=== PATIENT | female | born 1960 | race Caucasian/White ===

== ENCOUNTER 2016-10-27 13:45 | Emergency (ER) | payer OTHER ==
[~2016-10-27] VITALS: Ht 170.2 cm; Wt 86.2 kg
[~2016-10-27 13:45] MED LIST: AMLODIPINE BESY10 M1 PO; AUGMENTIN 500M500 MG PO; AUGMENTIN 875 M1 TAB PO; BIAXIN500 MG PO; CARISOPRODOL350 M1 PO; CARVEDILOL6.25 M1 PO; CLONAZEPAM0.5 M2 PO; DYMISTA NASAL S23 GM NASB; GEMFIBROZIL600 M1 PO; GUAIFENESIN-COD10 ML PO; IPRAT-ALBUT 0.5-3 ML PO; LISINOPRIL40 M1 PO; MEDROL4 M2 PO; OXCARBAZEPINE300 M1 PO; PREDNISONE 20MG20 MG PO; PREDNISONE20 M1 PO; SYMBICORT 16010.2 GM INH; TESSALON PERLE100 M1 PO; TESSALON PERLE100 MG PO; VENTOLIN HFA18 GM INH; VIBRAMYCIN100 MG PO; ZITHROMAX Z-PA250 M1 PO; ZITHROMAX500 M2 PO
--- NOTE | 2016-10-27 15:48 | ED GENERAL ADULT ---
History of Present Illness General Chief Complaint: Lower Extremity Problems Stated Complaint: R LEG PAIN AND SWELLING Source: patient Exam Limitations: no limitations Vital Signs & Intake/Output Vital Signs & Intake/Output Vital Signs Date Time Temp Pulse Resp B/P B/P Pulse O2 O2 Flow FiO2 Mean Ox Delivery Rate 10/27 1747 97.5 59 16 169/81 97 Room Air 10/27 1348 97.9 64 18 203/111 94 Room Air Allergies Coded Allergies: NO KNOWN ALLERGIES (05/25/15) Reconcile Medications Albuterol Sulfate (Ventolin Hfa) 90 MCG HFA.AER.AD 2 PUF INH Q4-6 PRN PRN BREATHING PROBLEMS (Reported) Albuterol Sulfate 2.5 MG/3 ML (0.083 %) VIAL.NEB 1 Vial INH/MICHAEL PRN ASTHMA/ ALLERGIES (Reported) Amlodipine Besylate 10 MG TABLET 1 TAB PO DAILY BP (Reported) Aspirin (Ecotrin*) (Unknown Strength) TABLET.DR (Unknown Dose) PO DAILY PAIN (Reported) Azelastine/Fluticasone (Dymista Nasal [place]) 137 MCG-50 MCG/SPRAY SPRAY.PUMP 1 SPRAY NASB BID UNKNOWN (Reported) Baclofen 10 MG TABLET 1 TAB PO BID MUSCLE RELAXER (Reported) Budesonide (Pulmicort) (Unknown Strength) AMPUL.NEB (Unknown Dose) UNKNOWN ( Reported) Budesonide/Formoterol Fumarate (Symbicort 160-4.5 Mcg Inhaler) 160 MCG-4.5 MCG/ ACTUATION HFA.AER.AD 2 PUF INH BID BREATHING PROBLEMS (Reported) Carvedilol 6.25 MG TABLET 1 TAB PO BID HEART/BP (Reported) Clonazepam 0.5 MG TABLET 1 TAB PO TID ANXIETY (Reported) Esomeprazole (Nexium) 40 MG CAPSULE.DR 1 CAP PO DAILY GI (Reported) Gemfibrozil 600 MG TABLET 1 TAB PO BID CHOLESTEROL (Reported) Ibuprofen 800 MG TABLET 1 TAB PO TID PRN PAIN Ipratropium/Albuterol Sulfate (Iprat-Albut 0.5-3(2.5) MG/3 Ml) 0.5 MG-3 MG (2.5 MG BASE)/3 ML AMPUL.NEB 1 VIAL PO PRN RESPIRATORY (Reported) Levocetirizine Dihydrochloride 5 MG TABLET 1 TAB PO DAILY ALLERGIES (Reported ) Lidocaine 5 % ADH..PATCH 1 PAT TOP PRN PAIN (Reported) Lisinopril 40 MG TABLET 1.5 TAB PO DAILY BP (Reported) Oxcarbazepine 300 MG TABLET 1 TAB PO 6X DAY MENTAL HEALTH (Reported) Prednisone (Unknown Strength) TABLET (Unknown Dose) PO PRN STEROID (Reported) Tramadol HCl 50 MG TABLET 1 TAB PO PRN PAIN (Reported) Triage Note: PT STATES SHE HAS OSTEOARTHRITIS AND SHE IS HAVING PAIN IN HER RIGHT LEG. PT CALLED HER PCP AND SHE WAS TOLD TO COME TO ED TO R/O PE. PT RIGHT LEG HAS SWELLING AND "MY VEINS ARE VERY LARGE. Triage Nurses Notes Reviewed? yes Onset: Abrupt Duration: day(s): Timing: recent history HPI: 10/27/16 5:35 PM 56-year-old female presents to the emergency department with polyarthritis. She also has severe pain to the right knee. The onset of the symptoms have been abrupt, the duration has been for days, the severity is significant; as her symptoms required her to come to the emergency department for care she denies any trauma. Past History Travel History Traveled to [place] past 21 day No Medical History Any Pertinent Medical History? see below for history Neurological: EPILEPSY EENT: NONE Cardiovascular: hypertension Respiratory: asthma Gastrointestinal: NONE Hepatic: NONE Renal: NONE Musculoskeletal: NONE Psychiatric: NONE Endocrine: NONE Blood Disorders: NONE Cancer(s): NONE WOODWORKING SHOP HAND/Reproductive: NONE Surgical History Surgical History: non-contributory Psychosocial History What is your primary language Croatian Tobacco Use: Current Daily Use Daily Tobacco Use Amount/Type: => 5 Cigarettes daily ETOH Use: occasional use Illicit Drug Use: denies illicit drug use Family History Hx Contributory? No Review of Systems Review of Systems Constitutional: Denies: fever. EENTM: Denies: visual changes. Respiratory: Denies: short of breath. Cardiovascular: Denies: chest pain. GI: Denies: abdominal pain. Genitourinary: Reports: no symptoms. Musculoskeletal: Reports: joint pain, joint swelling, muscle stiffness, neck pain. Skin: Denies: rash. Neurological/Psychological: Reports: no symptoms. Hematologic/Endocrine: Reports: no symptoms. Immunologic/Allergic: Reports: no symptoms. Physical Exam Physical Exam General Appearance: alert, awake, anxious, mild distress Head: atraumatic, normal appearance Eyes: Bilateral: normal appearance, PERRL, EOMI. Ears, Nose, Throat: normal pharynx, normal ENT inspection Neck: normal inspection, supple Respiratory: normal breath sounds, chest non-tender, no respiratory distress Cardiovascular: regular rate/rhythm Peripheral Pulses: 4+ radial (R), 4+ radial (L) Gastrointestinal: soft, non-tender Back: decreased range of motion Extremities: swelling, tenderness Neurologic/Psych: no motor/sensory deficits, awake, alert, oriented x 3 Skin: intact, normal color, warm/dry Comments: The patient has swelling to the distal interphalangeal joint and proximal interphalangeal joint. She has decreased range of motion to multiple joints and has had this for some time. X-ray of the right knee shows severe degenerative changes with a joint effusion. There is no increased warmth or redness to the right knee. 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 Ultrasound the right lower extremity is negative. I think she is having an acute exacerbation of chronic osteoarthritis Core Measures ACS in differential dx? No CVA/TIA Diagnosis: No Severe Sepsis Present: No Septic Shock Present: No Progress Differential Diagnoses I considered the following diagnoses in my evaluation of the patient: [Gout, osteoarthritis, DVT] Plan of Care: Orders Procedure Date/time Status US-UNILATERAL VENOUS DOPPLER 10/27 1510 Active Initial ED EKG: none Departure Departure Disposition: HOME OR SELF CARE Condition: Stable Clinical Impression Primary Impression: Arthritis Referrals: ZIA MENDOZA MD (PCP/Family) Departure Forms: Customer Survey General Discharge Information Prescriptions: Current Visit Scripts Ibuprofen 1 TAB PO TID PRN PAIN #15 TAB Critical Care Note Critical Care Note Critical Care Time: non-applicable
--- NOTE | 2016-10-27 16:04 | ULTRASOUND REPORT ---
EXAMINATION: US TRIPLEX LOWER EXTREMITY, RIGHT CLINICAL INFORMATION: Right lower extremity pain and swelling COMPARISON: None TECHNIQUE: Color-flow triplex imaging with spectral analysis and compression Doppler were performed on the lower extremity. FINDINGS: Respiratory variation, normal compression and augmented flow are noted throughout the left lower extremity. The visualized common femoral vein, superficial femoral vein, profunda femoral vein, popliteal vein and midcalf peroneal and posterior tibial venous segments show no evidence of deep venous thrombosis. 2 Richardson's cysts are noted one measuring 1.7 x 0.7 x 1.1 cm and another measuring 2.7 x 1.0 x 2.1 cm. Superficial varicosities are present. IMPRESSION: No evidence of deep venous thrombosis involving the lower extremity. Richardson's cysts are present along with varicose veins.
[2016-10-27] MEDS ORDERED: BACLOFEN10 M1 PO (16:05)
[2016-10-27] MEDS ORDERED: PREDNISONE10 M2 PO (16:06)
[2016-10-27] MEDS ORDERED: LIDOCAINE1 EACH TOP (16:07)
[2016-10-27] MEDS ORDERED: LEVOCETIRIZINE D5 M1 PO (16:07)
[2016-10-27] MEDS ORDERED: PULMICORT0.25 MG/3 (16:07)
[2016-10-27] MEDS ORDERED: TRAMADOL HCL50 M1 PO (16:07)
[2016-10-27] MEDS ORDERED: ALBUTEROL2.5 MG/3 M INH/SOL (16:08)
[2016-10-27] MEDS ORDERED: NEXIUM40 M1 PO (16:08)
[2016-10-27] MEDS ORDERED: ASPIRIN EC81 M1 PO (16:09)
--- NOTE | 2016-10-27 17:23 | RADIOLOGY REPORT ---
EXAMINATION: XR KNEE, LEFT CLINICAL INFORMATION: Knee pain COMPARISON: 04/02/2012 x-ray TECHNIQUE: Four views of the left knee. FINDINGS: There are moderate tricompartmental degenerative changes of the left knee joint with juxta-articular osteophytosis and narrowing of the medial tibiofemoral joint space. A small suprapatellar joint effusion is present. No acute fracture or dislocation of the left knee. IMPRESSION: ABDOULAYE.
--- NOTE | 2016-10-27 17:26 | RADIOLOGY REPORT ---
EXAMINATION: XR KNEE, RIGHT CLINICAL INFORMATION: Pain. COMPARISON: None TECHNIQUE: Four views of the right knee. FINDINGS: Bone mineral density is maintained without evidence of fracture or dislocation. No focal osseous lesions are seen. There is mild medial and patellofemoral joint compartment narrowing without productive or erosive changes. There is a moderate size joint effusion. IMPRESSION: Joint space narrowing without productive or erosive changes. Moderate size joint effusion.
[2016-10-27 17:47] VITALS: BP 169/81
[2016-10-27] MEDS ORDERED: IBUPROFEN800 M1 PO (18:01)
== END 2016-10-27 18:06 ==
LOC: ERH 13:45
DX: M19.90 Unspecified osteoarthritis, unspecified site (principal)
CPT/HCPCS: 73562-LT; 73562-RT; J3360

== ENCOUNTER 2018-01-25 11:39 | Emergency (ER) | payer OTHER ==
[~2018-01-25 11:39] MED LIST changes: +ALBUTEROL2.5 MG/3 M INH/SOL; +ASPIRIN EC81 M1 PO; +BACLOFEN10 M1 PO; +BROMFED DM COU118 M1 PO; +CIPROFLOXACIN250 M1 PO; +CLEOCIN HCL150 M1 PO; +DIOVAN320 M1 PO; +DIOVAN80 M1 PO; +DOXYCYCLINE HY100 M2 PO; +DULOXETINE HCL20 MG; +HYDROCHLOROTHIA25 M1 PO; +IBUPROFEN800 M1 PO; +INDOMETHACIN50 M1 PO; +KEFLEX500 M1 PO; +LEVAQUIN750 M1; +LEVOCETIRIZINE D5 M1 PO; +LIDOCAINE1 EACH TOP; +LYRICA150 M1 PO; +NEXIUM40 M1 PO; +NIFEDIPINE ER60 M1 PO; +PREDNISONE10 M2 PO; +PREDNISONE50 M1 PO; +PULMICORT0.25 MG/3; +TRAMADOL HCL50 M1 PO; +ZOFRAN4 M2 PO
--- NOTE | 2018-01-25 12:15 | ED GENERAL ADULT ---
History of Present Illness General Chief Complaint: General Adult Stated Complaint: EVANS DIZZY 2 DAYS NAUSEA Source: patient Exam Limitations: poor historian Vital Signs & Intake/Output Vital Signs & Intake/Output Vital Signs Date Time Temp Pulse Resp B/P B/P Pulse O2 O2 Flow FiO2 Mean Ox Delivery Rate 01/25 1829 98.7 69 18 142/78 97 Room Air 01/25 1633 100.1 01/25 1558 100.1 79 18 194/72 97 Room Air 01/25 1351 98.9 75 20 160/85 96 Room Air 01/25 1150 98 Room Air 01/25 1144 98.9 73 20 171/84 94 Room Air Allergies Uncoded Allergies: MOLD AND OTHER ENVIRONMENTAL ALLERGIES (Mild, INFECTIONS 02/11/17) Reconcile Medications Albuterol Sulfate (Ventolin Hfa) 90 MCG HFA.AER.AD 2 PUF INH Q4-6 PRN PRN BREATHING PROBLEMS (Reported) Aspirin (Ecotrin*) 81 MG TABLET.DR 1 TAB PO DAILY PAIN (Reported) Azelastine/Fluticasone (Dymista Nasal [place]) 137 MCG-50 MCG/SPRAY SPRAY.PUMP 1 SPRAY NASB BID allergies (Reported) Baclofen 10 MG TABLET 1 TAB PO BID MUSCLE RELAXER (Reported) Brompheniramine/Pseudoephed/Dm (Bromfed Dm Cough Syrup) 2 MG-30 MG-10 MG/5 ML SYRUP 5-10 ML PO Q4-6 PRN PRN cough Budesonide/Formoterol Fumarate (Symbicort 160-4.5 Mcg Inhaler) 160 MCG-4.5 MCG/ ACTUATION HFA.AER.AD 2 PUF INH BID BREATHING PROBLEMS (Reported) Carvedilol 6.25 MG TABLET 1 TAB PO BID HEART/BP (Reported) Cephalexin (Keflex) 500 MG CAPSULE 1 CAP PO TID WOUND Clonazepam 0.5 MG TABLET 1 TAB PO TID ANXIETY/EPILEPSY (Reported) Doxycycline Hyclate 100 MG CAPSULE 1 CAP PO BID bronchitis Esomeprazole (Nexium) 40 MG CAPSULE.DR 1 CAP PO DAILY GI (Reported) Gemfibrozil 600 MG TABLET 1 TAB PO BID CHOLESTEROL (Reported) Ibuprofen 800 MG TABLET 1 TAB PO TID PRN PAIN Ipratropium/Albuterol Sulfate (Iprat-Albut 0.5-3(2.5) MG/3 Ml) 0.5 MG-3 MG (2.5 MG BASE)/3 ML AMPUL.NEB 1 VIAL PO PRN RESPIRATORY (Reported) Levocetirizine Dihydrochloride 5 MG TABLET 1 TAB PO DAILY ALLERGIES (Reported ) Levofloxacin (Levaquin) (Unknown Strength) TABLET (Unknown Dose) UNKNOWN ( Reported) Nifedipine (Nifedipine ER) 60 MG TABLET.ER 2 TAB PO BID BP (Reported) Oxcarbazepine 300 MG TABLET 2 CAP PO QAM EPILEPSY (Reported) Oxcarbazepine 300 MG TABLET 1 TAB PO BID EPILEPSY (Reported) Oxcarbazepine 300 MG TABLET 2 TAB PO QHS EPILEPSY (Reported) Prednisone 50 MG TABLET 1 TAB PO DAILY bronchitis Pregabalin (Lyrica) 150 MG CAPSULE 1 CAP PO BID FIBROMYALGIA (Reported) Valsartan (Diovan) 320 MG TABLET 1 TAB PO DAILY BP (Reported) Triage Note: 57 YEAR OLD FEMALE TO ER VIA AMBULANCE FROM HER HOME WITH COMPLAINTS OF 2 DAYS OF DIZZINESS HEADACHE HAS A HISTORY OF MIGRAINES, COMPLAINS OF FEELING SOB, O2 SAT 97-98 % ON RA. AFEBRILE, NSR ON MONITOR AND LUNGS CLEAR AT THIS TIME. PT COMPLAINS OF FEELING ACHEY AND FEELS SHE NEEDS TO BE TESTED FOR THE FLU AND PNA. PER EMS ON THERE ARRIVAL TO HER HOME PT WALKING AROUND LOOKING FOR HER CAT AND WOULD NOT LEAVE INTILL SHE FOUND IT. PT ABLE TO AMBULATE TO AMBULANCE WITH NO COMPLAINTS. " PT ALSO REQUESTED THAT EMS DOES NOT TELL US THAT EKG/LUNG SOUNDS WERE GOOD. PAIN IN HEAD 10/10 , PT ALERT AND ORIENTED. Triage Nurses Notes Reviewed? yes HPI: Patient presents for evaluation of bilateral frontal headache that began roughly 1 week ago. Patient states the headache is a constant throbbing headache with associated nausea and dizziness. The patient is referring to productive cough with a greenish yellow phlegm over the past 2-3 days. Patient was recently seen by her chief operator hydroformer and presumably diagnosed with a pneumonia and subsequently placed on doxycycline. Patient is complaining of shortness of breath, myalgias, , dyspnea, chest pain or abdominal pain. stool has been formed but light and soft in consistency. she is concerned about pneumonia or influenza. Past History Travel History Traveled to [place] past 21 day No Medical History Any Pertinent Medical History? see below for history Neurological: EPILEPSY meningioma s/p resection EENT: allergies, anosmia Cardiovascular: hypertension, hyperlipidemia Respiratory: asthma Gastrointestinal: GERD Hepatic: NONE Renal: NONE Musculoskeletal: osteoarthritis, FIBROMYALGIA psoriatic arthritis Psychiatric: NONE Endocrine: NONE Blood Disorders: NONE Cancer(s): NONE DISPENSING LEAD/Reproductive: NONE History of MRSA: No History of VRE: No History of CDIFF: No Surgical History Surgical History: cholecystectomy, hip replacement, Left hip replacement(2003) MENINGIOMA TUMOR REMOVED Psychosocial History Who do you live with Daughter Services at Home None What is your primary language Grenadian Tobacco Use: Never used ETOH Use: denies use Illicit Drug Use: denies illicit drug use Family History Family History, If Any: MOTHER FHx: hypertension Hx Contributory? No Review of Systems Review of Systems Constitutional: Reports: see HPI. EENTM: Reports: no symptoms. Respiratory: Reports: see HPI. Cardiovascular: Reports: see HPI. GI: Reports: see HPI. Genitourinary: Reports: no symptoms. Musculoskeletal: Reports: no symptoms. Skin: Reports: no symptoms. Neurological/Psychological: Reports: no symptoms. Hematologic/Endocrine: Reports: no symptoms. Immunologic/Allergic: Reports: no symptoms. All Other Systems: Reviewed and Negative Physical Exam Physical Exam General Appearance: see below Comments: Gen.: Well-nourished, well-developed, no acute respiratory distress. Head: Normocephalic, atraumatic. Eyes: Normal inspection bilaterally Ears: Normal inspection bilaterally Nose: Normal inspection Throat/mouth : Moist mucosa Neck: Supple, full range of motion, no goiter Heart: Regular rate and rhythm, no murmurs rubs or gallops Lungs: Clear to auscultation bilaterally with normal air entry Chest: Nontender Back: Normal range of motion Abdomen: Soft, nontender, nondistended, normal bowel sounds Extremities: Normal range of motion grossly, equal radial pulses, no cyanosis clubbing or edema Neurologic: Cranial nerves grossly intact, speech is clear Skin: warm and dry Psychiatric: Calm, cooperative, no apparent delusions or hallucinations Core Measures ACS in differential dx? No CVA/TIA Diagnosis: No Sepsis Present: No Sepsis Focused Exam Completed? No Progress Differential Diagnoses I considered the following diagnoses in my evaluation of the patient: Occult infection, diverticulitis, pancreatitis, urinary tract infection, pneumonia, viral syndrome, dehydration, electrolyte abnormality, metabolic acidosis Plan of Care: Orders Procedure Date/time Status URINALYSIS 01/25 1252 Complete CBC WITHOUT DIFFERENTIAL 01/25 1252 Complete BASIC METABOLIC PANEL 01/25 1252 Complete EKG 01/25 1252 Active Laboratory Tests 01/25/18 1500: Urinalysis LIGHT H, Urine Color YEL, Urine Clarity HAZY H, Urine pH 6.5, Ur Specific [place] 1.025, Urine Protein TRACE H, Urine Ketones NEG, Urine Nitrite NEG, Urine Bilirubin NEG, Urine Urobilinogen 0.2, Ur Leukocyte Esterase NEG, Ur Microscopic SEDIMENT EXAMINED, Urine RBC 3-5, Urine WBC 10-15 H, Ur Epithelial Cells MOD H, Urine Bacteria FEW H, Urine Mucus MANY H, Urine Hemoglobin TRACE -INTACT, Urine Glucose NEG 01/25/18 1310: Anion Gap 15, Estimated GFR > 60, BUN/Creatinine Ratio 33.3 H, Glucose 120 H, Calcium 9.1, CBC w Diff NO MAN DIFF REQ, RBC 4.41, MCV 79.9 L, MCH 26.9 L, MCHC 33.6, RDW 16.7 H, MPV 7.1 L, Gran % 83.0 H, Lymphocytes % 10.2 L, Monocytes % 6.7, Eosinophils % 0, Basophils % 0.1, Absolute Granulocytes 10.4 H , Absolute Lymphocytes 1.3, Absolute Monocytes 0.8 H, Absolute Eosinophils 0, Absolute Basophils 0 Diagnostic Imaging: Discussed w/RAD: Radiology Read, CT Scan. Radiology Impression: PATIENT: AYSHA SALDANA PRESENT AGE: 57 PATIENT ACCOUNT NO: [id number] : 61 LOCATION: [facility] ORDERING PHYSICIAN: Alexandre Key MD SERVICE DATE: 01/25/18 EXAM TYPE : CAT - CT ABD & PELVIS W IV CONTRAST EXAMINATION: CT ABDOMEN AND PELVIS WITH CONTRAST CLINICAL INFORMATION: Fever, abdominal pain COMPARISON: Ultrasound 07/2016 TECHNIQUE: Multidetector volumetric imaging was performed of the abdomen and pelvis following IV administration of 95 mL of Optiray 320 intravenous contrast. Sagittal and coronal reformatted images were obtained on the technologist's workstation. DLP: 831 mGy-cm FINDINGS: LUNG BASES: The visualized lung bases are unremarkable. LIVER, GALLBLADDER, AND BILIARY TREE: Liver is diffusely low in attenuation. No focal lesion identified. No intrahepatic biliary dilatation. The gallbladder is unremarkable with no evidence of radiopaque gallstones, gallbladder wall thickening, or obvious pericholecystic inflammatory changes. PANCREAS: Unremarkable. SPLEEN: Unremarkable. ADRENAL GLANDS: Unremarkable. KIDNEYS AND URETERS: The kidneys are normal in size, shape , and attenuation. No hydronephrosis, hydroureter, or calculi seen. No perinephric stranding. BLADDER: Unremarkable. GASTROINTESTINAL TRACT: Small to moderate hiatal hernia. There are no dilated loops of small bowel. Colon is unremarkable. Moderate stool volume. ABDOMINAL WALL: No significant hernia is appreciated. LYMPH NODES: Normal. VASCULAR: Mild to moderate calcific atherosclerotic disease involving the abdominal aorta which appears normal in caliber. PELVIC VISCERA: Uterus appears normal in size. There is relative thickening of the endometrium which measures up to 1.8 cm. The ovaries appear symmetrically sized. However, there are hyperdense foci within the right ovary which may be indicative of focal calcifications. There is no free fluid within the pelvis. No abnormal pelvic adenopathy. OSSEOUS STRUCTURES: Multilevel degenerative changes with vacuum disc phenomena present at the L3-L4 and L4-L5 levels in combination with endplate changes. Similar but milder findings are present at L5-S1. IMPRESSION: 1. No CT evidence for diverticulitis or pancreatitis. 2. Hepatic steatosis. 3. Small to moderate hiatal hernia. 4. Apparent thickening of the endometrium, incompletely evaluated on CT. If the patient is postmenopausal differential diagnosis would include endometrial hyperplasia, polyp or possibly underlying malignancy. 5. Small focal hyperdense foci likely representing calcifications within the right ovary. Suggest follow- up pelvic ultrasound further assess uterine and right ovarian findings. DICTATED BY: Mable Lerma MD DATE/TIME DICTATED:01/25/181713 PLUMBING CONTRACTOR:MAGDALENA DATE/TIME TRANSCRIBED:01/25/181713 CONFIDENTIAL, DO NOT COPY WITHOUT APPROPRIATE AUTHORIZATION. <Electronically signed in Other Vendor System> SIGNED BY: Mable Lerma MD 01/25/18 1728, PATIENT: AYSHA SALDANA PRESENT AGE: 57 PATIENT ACCOUNT NO: [id number] : 61 LOCATION: [facility] ORDERING PHYSICIAN: Alexandre Key MD SERVICE DATE: 01/25/181251 EXAM TYPE: CAT - CT HEAD WO IV CONTRAST EXAMINATION: CT HEAD WITHOUT CONTRAST CLINICAL INFORMATION: Bifrontal headaches, trouble concentrating. Presumptive diagnosis of mass, edema, sinusitis, occult trauma. Remote history of left frontal meningioma excision in 2004. COMPARISON: CT scan of the head dated 01/26/2006. Brain MRI scan dated 05/08/2006. TECHNIQUE: Contiguous axial imaging was performed from the skull base to vertex without intravenous administration of contrast. DLP: 615.28 mGy-cm FINDINGS: The patient is status post left frontal craniotomy with large area of gliosis and encephalomalacia seen in the left frontal lobe, consistent with further evolution of postoperative changes status post excision of left frontal meningioma. There is no evidence of acute intracranial hemorrhage or territorial infarction. No abnormal mass effect or midline shift is seen. Remainder of the martinez to white matter differentiation is well preserved. No extra-axial fluid collections are identified. The ventricles are normal in size. The soft tissues are normal. The mastoid air cells and visualized portions of the paranasal sinuses are well aerated. IMPRESSION: 1. No acute intracranial pathology. 2. Further evolution of the encephalomalacia and gliosis is seen in the left frontal lobe status post left frontal craniotomy for hemangioma excision. DICTATED BY: Magy Emery MD DATE/TIME DICTATED:01/25/181325 PLUMBING CONTRACTOR:MAGDALENA DATE/TIME TRANSCRIBED:01/25/181325 CONFIDENTIAL, DO NOT COPY WITHOUT APPROPRIATE AUTHORIZATION. <Electronically signed in Other Vendor System> SIGNED BY: Magy Emery MD 01/25/18 7941 CXR Impression: no acute abnormality (OF CARDIOPULMONARY) Initial ED EKG: none Comments: 01/25/2018 3:45:26 PM awaiting urinalysis. Patient resting comfortably. 01/25/2018 6:03:47 PM I found patient sleeping but she awoke easily. I have updated her on test results. She feels "unsafe" returning home. I will discuss her case with case management regarding hospitalization. Departure Departure Disposition: HOME OR SELF CARE Condition: Stable Clinical Impression Primary Impression: Hyponatremia Secondary Impressions: Febrile illness Referrals: Ivan Denise MD (PCP/Family) Additional Instructions: Increase your salt intake and decrease your Free water intake until you see Dr. Denise in follow-up. Tylenol alternating with ibuprofen every 3 hours as needed for fever control. Please call Dr. Denise tomorrow and arrange for a follow-up appointment this week. Your ultrasound shows a thickened uterine lining and calcifications in the ovaries that should be further evaluated with an ultrasound and GROUP SALES MANAGER evaluation. Continue your current medications. Return if any concerns or sudden worsening. Please note that there might be incidental findings in your evaluation that are unrelated to the current emergency department visit. Please notify your primary care doctor about this emergency department visit in order to obtain and review all of the testing performed so that these incidental findings can be monitored as needed. If you had an x-ray performed, please understand that some fractures or other findings may not be seen on the initial set of x-rays. If your symptoms persist you might need a repeat set of x-rays to check for such a fracture. If you had a laceration evaluated, please understand that foreign bodies such as glass or wood may not be visible to the naked eye or on plain x-rays. If the wound becomes red, swollen, increasingly more painful or if there is any drainage from the wound, please have it reevaluated by a physician for the possibility of a retained foreign body. If you're unable to follow up as outlined in the discharge instructions please return to the emergency department. Thank you for choosing the [facility] Emergency Department for your care. It was a pleasure to serve you today. Alexandre Key M.D. [facility] Departure Forms: Customer Survey General Discharge Information Observation Note Place Patient In: Non-ED OBS Care Area Rationale for Observation: My rational for observation is as follows patient is suffering from a febrile illness of unclear etiology. Her illnesses causing a severe debilitation secondary to headache, nausea and generalized weakness. Since the cause of her illness is somewhat unclear at this time, it is difficult to predict if she will improve or worsen. She has experienced no improvement with symptomatic care including IV fluids antiemetics and antipyretics. I feel she is a poor candidate for outpatient management under the circumstances and could potentially return in worse clinical condition. Also, she would have great difficulty in managing her ADLs. While in the hospital the patient should be treated with intravenous fluids antiemetics and antipyretics. She should have repeated clinical examinations to better define where the fever originates. Infectious disease consultation should be considered if no clear etiology manifests. Critical Care Note Critical Care Note Critical Care Time: non-applicable
[2018-01-25 13:17] LABS: ABSOLUTE BASOPHIL COUNT 0 /CUMM (0.0-0.2); ABSOLUTE EOSINOPHIL COUNT 0 /CUMM (0.0-0.7); ABSOLUTE GRANULOCYTE CT 10.4 /CUMM (1.4-6.5); ABSOLUTE LYMPH COUNT 1.3 /CUMM (1.2-3.4); ABSOLUTE MONOCYTE COUNT 0.8 /CUMM (0.10-0.60); BASOPHIL % 0.1 % (0.0-2.0); EOSINOPHIL % 0 % (0-5); HEMATOCRIT 35.2 % (37-47); MEAN CORPUSCULAR HGB 26.9 PG (27.0-31.0); MEAN CORPUSCULAR HGB CONC 33.6 G/DL (33.0-37.0); MEAN CORPUSCULAR VOLUME 79.9 FL (81.0-99.0); MEAN PLATELET VOLUME 7.1 FL (7.4-10.4); PLATELET COUNT 478 /CUMM (130-400); RBC DISTRIBUTION WIDTH 16.7 % (11.5-14.5); RED BLOOD CELL CT 4.41 /CUMM (4.20-5.40); WHITE BLOOD CELL COUNT 12.5 /CUMM (4.8-10.8)
--- NOTE | 2018-01-25 13:45 | CT SCAN REPORT ---
EXAMINATION: CT HEAD WITHOUT CONTRAST CLINICAL INFORMATION: Bifrontal headaches, trouble concentrating. Presumptive diagnosis of mass, edema, sinusitis, occult trauma. Remote history of left frontal meningioma excision in 2004. COMPARISON: CT scan of the head dated 01/26/2006. Brain MRI scan dated 05/08/2006. TECHNIQUE: Contiguous axial imaging was performed from the skull base to vertex without intravenous administration of contrast. DLP: 615.28 mGy-cm FINDINGS: The patient is status post left frontal craniotomy with large area of gliosis and encephalomalacia seen in the left frontal lobe, consistent with further evolution of postoperative changes status post excision of left frontal meningioma. There is no evidence of acute intracranial hemorrhage or territorial infarction. No abnormal mass effect or midline shift is seen. Remainder of the martinez to white matter differentiation is well preserved. No extra-axial fluid collections are identified. The ventricles are normal in size. The soft tissues are normal. The mastoid air cells and visualized portions of the paranasal sinuses are well aerated. IMPRESSION: 1. No acute intracranial pathology. 2. Further evolution of the encephalomalacia and gliosis is seen in the left frontal lobe status post left frontal craniotomy for hemangioma excision.
--- NOTE | 2018-01-25 13:51 | RADIOLOGY REPORT ---
EXAMINATION: XR PORTABLE CHEST CLINICAL INFORMATION: Dyspnea. Current treatment for pneumonia. Presumptive diagnosis of pneumonia, effusion. COMPARISON: Several prior chest x-rays, most recent of which is dated 07/31/2017. TECHNIQUE: Portable AP semierect view of the chest was obtained. FINDINGS: EKG leads overlie the chest. The cardiomediastinal silhouette is enlarged. Mild ectasia and tortuosity of the aorta is noted. Lungs bilaterally are symmetrically expanded and demonstrate minimal linear subsegmental atelectasis in the lung bases bilaterally. No focal consolidation, effusion or pneumothorax. No mass congestion/pulmonary edema. Paratracheal soft tissue density in the anterosuperior mediastinum is seen, similar to prior study, likely accentuated by slight patient rotation and great vessel ectasia. Several loose bodies are seen adjacent to the right glenoid, unchanged. Old healed posterior right rib fractures are again seen, unchanged. IMPRESSION: 1. Chronic findings of mild cardiomegaly, mild bibasilar subsegmental atelectasis, and loose bodies in the right glenohumeral joint. 2. No acute cardiopulmonary process.
--- NOTE | 2018-01-25 17:28 | CT SCAN REPORT ---
EXAMINATION: CT ABDOMEN AND PELVIS WITH CONTRAST CLINICAL INFORMATION: Fever, abdominal pain COMPARISON: Ultrasound 02/24/2017 TECHNIQUE: Multidetector volumetric imaging was performed of the abdomen and pelvis following IV administration of 95 mL of Optiray 320 intravenous contrast. Sagittal and coronal reformatted images were obtained on the technologist's workstation. DLP: 831 mGy-cm FINDINGS: LUNG BASES: The visualized lung bases are unremarkable. LIVER, GALLBLADDER, AND BILIARY TREE: Liver is diffusely low in attenuation. No focal lesion identified. No intrahepatic biliary dilatation. The gallbladder is unremarkable with no evidence of radiopaque gallstones, gallbladder wall thickening, or obvious pericholecystic inflammatory changes. PANCREAS: Unremarkable. SPLEEN: Unremarkable. ADRENAL GLANDS: Unremarkable. KIDNEYS AND URETERS: The kidneys are normal in size, shape, and attenuation. No hydronephrosis, hydroureter, or calculi seen. No perinephric stranding. BLADDER: Unremarkable. GASTROINTESTINAL TRACT: Small to moderate hiatal hernia. There are no dilated loops of small bowel. Colon is unremarkable. Moderate stool volume. ABDOMINAL WALL: No significant hernia is appreciated. LYMPH NODES: Normal. VASCULAR: Mild to moderate calcific atherosclerotic disease involving the abdominal aorta which appears normal in caliber. PELVIC VISCERA: Uterus appears normal in size. There is relative thickening of the endometrium which measures up to 1.8 cm. The ovaries appear symmetrically sized. However, there are hyperdense foci within the right ovary which may be indicative of focal calcifications. There is no free fluid within the pelvis. No abnormal pelvic adenopathy. OSSEOUS STRUCTURES: Multilevel degenerative changes with vacuum disc phenomena present at the L3-L4 and L4-L5 levels in combination with endplate changes. Similar but milder findings are present at L5-S1. IMPRESSION: 1. No CT evidence for diverticulitis or pancreatitis. 2. Hepatic steatosis. 3. Small to moderate hiatal hernia. 4. Apparent thickening of the endometrium, incompletely evaluated on CT. If the patient is postmenopausal differential diagnosis would include endometrial hyperplasia, polyp or possibly underlying malignancy. 5. Small focal hyperdense foci likely representing calcifications within the right ovary. Suggest follow-up pelvic ultrasound further assess uterine and right ovarian findings.
[2018-01-25 18:29] VITALS: BP 142/78
== END 2018-01-25 19:22 ==
LOC: ERH 11:39
PROVIDERS: Emergency Medicine
DX: E87.1 Hypo-osmolality and hyponatremia (principal); R50.9 Fever, unspecified; G40.909 Epilepsy, unspecified, not intractable, without status epilepticus; I10 Essential (primary) hypertension; E78.5 Hyperlipidemia, unspecified; K21.9 Gastro-esophageal reflux disease without esophagitis; M79.7 Fibromyalgia
CPT/HCPCS: 71045; 74177; 81001; 93005; 93010; 96361; 96374; 96375; J0131; J2550